=== PATIENT | male | born 1970 | race Two or more races ===

== ENCOUNTER 2018-10-18 22:25 | Emergency (ER) | payer MEDICAID, OTHER ==
[~2018-10-18] VITALS: Ht 180.3 cm; Wt 113.4 kg
[2018-10-19] MEDS ORDERED: ONDANSETRON HCL 4 MG/2 ML VIAL IV ONE (05:15)
[2018-10-19] MEDS ORDERED: SODIUM CHLORIDE 0.9% 1,000 ML IV ONE (05:15)
[2018-10-19] MEDS ORDERED: MORPHINE SULFATE 4 MG/ML SYR/VIAL IV ONE (05:15)
[2018-10-19 06:01] LABS: Basophils # (auto) 0.1 uL; Basophils % (auto) 1.1 % (0.0-2.0); Eosinophils # (auto) 0.3 uL; Eosinophils % (auto) 4.7 % (0.0-7.0); Hematocrit 48.9 % (41.0-53.0); Hemoglobin 16.7 g/dL (13.5-17.5); Lymphocytes # (auto) 1.1 uL; Lymphocytes % (auto) 19.6 % (10.0-50.0); Mean Corpuscular Hemoglobin 31.6 pg (28.0-32.0); Mean Corpuscular Hgb Conc. 34.1 g/dL (32.0-36.0); Mean Corpuscular Volume 92.6 fL (80.0-100.0); Monocytes # (auto) 0.4 uL; Monocytes % (auto) 6.8 % (0.0-12.0); Neutrophils # (auto) 3.8 uL; Neutrophils % (auto) 67.8 % (37.0-80.0); Nucleated Red Blood Cells % 0.1 %; Platelet Count (auto) 263 10^3/uL (140-450); Red Blood Cells 5.28 10^6/uL (4.5-5.90); Red Cell Distribution Width 12.9 % (11.8-14.3); White Blood Cell 5.6 10^3/uL (4.4-10.8)
[2018-10-19 06:08] LABS: BUN/Creatinine Ratio 15.9; Calcium 8.6 mg/dL (8.5-10.1); Potassium 4.3 mmol/L (3.5-5.1)
[2018-10-19 06:11] LABS: Bilirubin, Total 0.7 mg/dL (0.2-1.0); Total Protein 7.2 g/dL (6.4-8.2)
[2018-10-19] MEDS ORDERED: IOHEXOL 300 MG/ML 100ML BOTTLE IJ ONE (06:58)
[2018-10-19 08:59] LABS: Urine Bacteria NONE SEEN /hpf (None Seen); Urine Blood TRACE /uL (Negative); Urine Specific Gravity 1.038 (1.001-1.035); Urine WBC <1 /hpf (0 - 3)
[2018-10-19 10:07] VITALS: BP 115/81
[2018-10-19] MEDS ORDERED: METOCLOPRAMIDE HCL 5MG/ml INJ 2ml VIAL IM ONE (10:30)
[2018-10-19] MEDS ORDERED: KETOROLAC TROMETH 60MG/2ML VIAL IM ONE (10:30)
== END 2018-10-19 10:20 | disposition home or self-care (01) ==
LOC: ER 22:30
DX: S20.211A Contusion of right front wall of thorax, initial encounter (principal); M54.5 Low back pain; M79.18 Myalgia, other site; V49.9XXA Car occupant (driver) (passenger) injured in unspecified traffic accident, initial encounter; Y93.89 Activity, other specified; Y92.89 Other specified places as the place of occurrence of the external cause; Y99.8 Other external cause status
CPT/HCPCS: 36415; 71260; 80053; 81001; 82150; 83690; 85025; 96372; 96374; 96375; 99284; J1885; J2270; J2405; J2765; J7030; Q9967